=== PATIENT | male | born 1980 | race Caucasian/White ===

== ENCOUNTER 2016-07-27 18:35 | Emergency (ER) | payer SELFPAY ==
[2016-07-27] MEDS ORDERED: ceFAZolin 1 GM in Dextrose (*) 1 GM/50 ML BAG IVPB ONE (19:58)
[2016-07-27] MEDS ORDERED: Vancomycin(*) 1,000 MG in NS 0.9% 250 ML* 250 ML IVPB ONE (19:58)
[2016-07-27] MEDS ORDERED: NS 0.9% 1000 ML* 1,000 ML IV SCH (20:00)
[2016-07-27 20:42] LABS: Hematocrit 41 % (42-52); Mean Corpuscular HGB Conc 34 g/dl (31-36); Mean Corpuscular Hemoglobin 30 pg (27-31); Mean Corpuscular Volume 87 fL (80-94); Mean Platelet Volume 7 um3 (7.4-10.4); Red Blood Count 4.73 10^6/ul (4.0-5.4); Red Cell Distribution Width 13 % (10.5-15)
[2016-07-27 20:57] LABS: Albumin 3.6 g/dL (3.2-5.2); BUN/Creatinine Ratio 14.9 (8-20); C Reactive Protein 44.64 mg/L (< 5.00); EGFR African American 153.1 (>60); Globulin 3.7 g/dL (2-4); Potassium 3.7 mmol/L (3.5-5.0); Total Bilirubin 0.7 mg/dL (0.2-1.0); Total Protein 7.3 g/dL (6.4-8.9)
[2016-07-27] MEDS ORDERED: NS 0.9% 250 ML* 250 ML ONE (21:30)
[2016-07-27] MEDS ORDERED: Vancomycin(*) 1,000 MG ADVAN IVPB ONE (21:33)
[2016-07-27] MEDS ORDERED: Clindamycin CAP* 150 MG PO ONE ×2 (21:52→21:53)
[2016-07-27] MEDS ORDERED: diPHENhydraMINE PO* 50 MG PO ONE ×2 (21:54)
--- NOTE | 2016-07-27 21:59 | ED ---
Camryn Gonzalez Alok, scribed for Nestor Golden MD on 07/27/16 at 2010 . Skin Complaint - HPI Summary HPI Summary: 36 y/o male presents to the ED with pruritic, painful sores with black, scabbed centers surrounded by erythema,all over his legs, arms, abdomen, and face for the last week. Pt believes them to be bug bites but states no other tenants in his home has them. Pt also c/o fever, chills, diarrhea, and pedal edema since the start of the sores one week ago. Pt does not take medications and has never been tested for DM. PMHx includes a past spinal infection and FMHx includes DM. - History of Current Complaint Chief Complaint: EDRashSkinAbscess Time Seen by Provider: 07/27/16 19:46 Stated Complaint: SORES ON BODY/LEGS SWOLLEN Hx Obtained From: Patient Onset/Duration: Started Days Ago, Atraumatic, Still Present Timing: Constant Onset Severity: Moderate Current Severity: Moderate Pain Intensity: 10 Pain Scale Used: 0-10 Numeric Skin Location: Face, Arm, Abdomen, Leg Character: Swelling, Pruritus, Pain, Redness, Painful Aggravating Symptom(s): Nothing Alleviating Symptom(s): Nothing Associated Signs & Symptoms: Fever, Chills - Allergy/Home Medications Allergies/Adverse Reactions: Allergies Allergy/AdvReac Type Severity Reaction Status Date / Time No Known Allergies Allergy Verified 03/25/15 17:02 PMH/Surg Hx/FS Hx/Imm Hx Infectious Disease History: Yes - Spinal infection Infectious Disease History: Denies: Traveled Outside the [place] in Last 30 Days - Family History Known Family History: Positive: Diabetes - Social History Occupation: Unemployed Lives: With Family Alcohol Use: None Substance Use Type: Reports: None Smoking Status (MU): Never Smoked Tobacco Review of Systems Positive: Fever, Chills Positive: Diarrhea Positive: Edema Positive: Other - Multiple sores on abd, legs, arms, and face. All Other Systems Reviewed And Are Negative: Yes Physical Exam Triage Information Reviewed: Yes Vital Signs On Initial Exam: Initial Vitals Temp Pulse Resp Pulse Ox 98.0 F 99 20 100 07/27/16 18:38 07/27/16 18:38 07/27/16 18:38 07/27/16 18:38 Vital Signs Reviewed: Yes Appearance: Positive: Well-Appearing, No Pain Distress Skin: Positive: Other - Multiple sores on both legs, and abdomen with scabbed centers ranging in 3mm-1.5cm in diameter surrounded by erythematous regions and pedal edema. No sores on back. Head/Face: Positive: Normal Head/Face Inspection Eyes: Positive: EOMI, LESLIE ENT: Positive: Normal ENT inspection Neck: Positive: Supple, Nontender Respiratory/Lung Sounds: Positive: Clear to Auscultation, Breath Sounds Present Cardiovascular: Positive: RRR Abdomen Description: Positive: Nontender, Soft Bowel Sounds: Positive: Present Musculoskeletal: Positive: Normal, Strength/ROM Intact Neurological: Positive: Normal, Sensory/Motor Intact, Alert, Oriented to Person Place, Time Psychiatric: Positive: Affect/Mood Appropriate Diagnostics - Vital Signs Vital Signs Temp Pulse Resp Pulse Ox 07/27/16 18:38 98.0 F 99 20 100 - Laboratory Lab Results: Lab Results 07/27/16 07/27/16 07/27/16 Range/Units 20:25 20:25 20:25 WBC 9.0 (3.5-10.8) 10^3/ul RBC 4.73 (4.0-5.4) 10^6/ul Hgb 14.0 (14.0-18.0) g/dl Hct 41 L (42-52) % MCV 87 (80-94) fL MCH 30 (27-31) pg MCHC 34 (31-36) g/dl RDW 13 (10.5-15) % Plt Count 245 (150-450) 10^3/ul MPV 7 L (7.4-10.4) um3 Neut % (Auto) 63.3 (38-83) % Lymph % (Auto) 25.7 (25-47) % [place] % (Auto) 7.9 (1-9) % Eos % (Auto) 2.3 (0-6) % Baso % (Auto) 0.8 (0-2) % Absolute Neuts (auto) 5.7 (1.5-7.7) 10^3/ul Absolute Lymphs (auto) 2.3 (1.0-4.8) 10^3/ul Absolute Monos (auto) 0.7 (0-0.8) 10^3/ul Absolute Eos (auto) 0.2 (0-0.6) 10^3/ul Absolute Basos (auto) 0.1 (0-0.2) 10^3/ul Absolute Nucleated RBC 0.01 10^3/ul Nucleated RBC % 0.1 INR (Anticoag Therapy) 1.10 (0.89-1.11) APTT 29.4 (26.0-36.3) seconds Sodium 134 (133-145) mmol/L Potassium 3.7 (3.5-5.0) mmol/L Chloride 104 (101-111) mmol/L Carbon Dioxide 23 (22-32) mmol/L Anion Gap 7 (2-11) mmol/L BUN 11 (6-24) mg/dL Creatinine 0.74 (0.67-1.17) mg/dL Est GFR ( Amer) 153.1 (>60) Est GFR (Non-Af Amer) 119.0 (>60) BUN/Creatinine Ratio 14.9 (8-20) Glucose 100 (70-100) mg/dL Lactic Acid (0.5-2.0) mmol/L Calcium 9.0 (8.6-10.3) mg/dL Total Bilirubin 0.70 (0.2-1.0) mg/dL AST 23 (13-39) U/L ALT 25 (7-52) U/L Alkaline Phosphatase 45 (34-104) U/L C-Reactive Protein 44.64 H (< 5.00) mg/L Total Protein 7.3 (6.4-8.9) g/dL Albumin 3.6 (3.2-5.2) g/dL Globulin 3.7 (2-4) g/dL Albumin/Globulin Ratio 1.0 (1-3) 07/27/17 Range/Units 20:25 WBC (3.5-10.8) 10^3/ul RBC (4.0-5.4) 10^6/ul Hgb (14.0-18.0) g/dl Hct (42-52) % MCV (80-94) fL MCH (27-31) pg MCHC (31-36) g/dl RDW (10.5-15) % Plt Count (150-450) 10^3/ul MPV (7.4-10.4) um3 Neut % (Auto) (38-83) % Lymph % (Auto) (25-47) % [place] % (Auto) (1-9) % Eos % (Auto) (0-6) % Baso % (Auto) (0-2) % Absolute Neuts (auto) (1.5-7.7) 10^3/ul Absolute Lymphs (auto) (1.0-4.8) 10^3/ul Absolute Monos (auto) (0-0.8) 10^3/ul Absolute Eos (auto) (0-0.6) 10^3/ul Absolute Basos (auto) (0-0.2) 10^3/ul Absolute Nucleated RBC 10^3/ul Nucleated RBC % INR (Anticoag Therapy) (0.89-1.11) APTT (26.0-36.3) seconds Sodium (133-145) mmol/L Potassium (3.5-5.0) mmol/L Chloride (101-111) mmol/L Carbon Dioxide (22-32) mmol/L Anion Gap (2-11) mmol/L BUN (6-24) mg/dL Creatinine (0.67-1.17) mg/dL Est GFR ( Amer) (>60) Est GFR (Non-Af Amer) (>60) BUN/Creatinine Ratio (8-20) Glucose (70-100) mg/dL Lactic Acid 1.0 (0.5-2.0) mmol/L Calcium (8.6-10.3) mg/dL Total Bilirubin (0.2-1.0) mg/dL AST (13-39) U/L ALT (7-52) U/L Alkaline Phosphatase (34-104) U/L C-Reactive Protein (< 5.00) mg/L Total Protein (6.4-8.9) g/dL Albumin (3.2-5.2) g/dL Globulin (2-4) g/dL Albumin/Globulin Ratio (1-3) Result Diagrams: 07/27/16 20:25 07/27/16 20:25 Lab Statement: Any lab studies that have been ordered have been reviewed, and results considered in the medical decision making process. Re-Evaluation - Re-Evaluation First Eval Re-Evaluation Time: 21:42 Change: Unchanged Comment: Discussed lab results with pt Course/Dx - Course Course Of Treatment: NO CRITICAL CARE TIME Assessment/Plan: IT APPEARS THE PATIENT IS PICKING AT HIS SKIN, CAUSING OPEN SORE THAT ARE NOW INFECTED. PLAN IS TO START BENADRYL FOR THE PURITIS, MUPIROCIN FOR THE SORES AND CLINDAMYCIN FOR THE CELLULITIS. DISCUSSED LAB RESULTS WITH THE PATIENT. HE IS TO F/U WITH HIS PMD; RETURN TO THE ED IF WORSE. DISCHARGE HOME STABLE. - Diagnoses Provider Diagnoses: Cellulitis Discharge - Discharge Plan Condition: Stable Disposition: HOME Prescriptions: Clindamycin Cap(NF) [Cleocin 300 mg Cap(NF)] 300 mg PO Q6H #40 cap Mupirocin 2% OINT* [Bactroban 2 % Oint*] 1 applic TOPICAL TID #30 gm diPHENhydraMINE PO* [Benadryl PO 50 MG CAP*] 50 mg PO Q6H PRN #40 cap PRN Reason: Itching Patient Education Materials: Cellulitis (ED) Referrals: Non Staff,Doctor [Primary Care Provider] - Additional Instructions: FOLLOW UP WITH YOUR DOCTOR. RETURN TO THE EMERGENCY DEPARTMENT FOR ANY WORSENING OF YOUR CONDITION; FEVER, YOU FEEL ILL, SPREAD OF INFECTION OR QUESTIONS OR CONCERNS. The documentation as recorded by the Camryn yarbrough Alok accurately reflects the service I personally performed and the decisions made by me, Nestor Golden MD.
[2016-07-28 00:30] VITALS: BP 115/58
== END 2016-07-28 00:29 | disposition home or self-care (01) ==
LOC: ED 18:35
DX: L03.90 Cellulitis, unspecified (principal); L29.9 Pruritus, unspecified; R50.9 Fever, unspecified; R19.7 Diarrhea, unspecified; R60.9 Edema, unspecified
CPT/HCPCS: 36415; 80053; 83605; 85025; 85610; 85730; 86140; 87040; 96372; 99284; A9270-GY; J0690; J3370